=== PATIENT | female | born 1955 | race Caucasian/White ===

== ENCOUNTER → 2018-12-22 12:46 | Outpatient (CLI) | payer MEDICAID, SELFPAY ==
[2018-12-22 13:11] VITALS: BP 109/54; PULSE 78; RESP 16; TEMP 36.3; O2SAT 98; BMI 21.9
[2018-12-22] MEDS: Acetaminophen 325 MG Tablet 650 MG PO (13:49)
[2018-12-22 14:04] VITALS: BP 98/48; PULSE 71; RESP 16; TEMP 36.3
[2018-12-22 15:05] VITALS: BP 113/56; PULSE 76; RESP 16; TEMP 36.2
[2018-12-22 15:59] VITALS: BP 125/62; PULSE 74; RESP 16; TEMP 36.4
== END ==
PROVIDERS: Family Provider Internal Medicine; PCP Internal Medicine; Referring Provider Internal Medicine Hematology & Oncology; Visit Provider Internal Medicine Hematology & Oncology
DX: Z51.89 Encounter for other specified aftercare (principal); D64.81 Anemia due to antineoplastic chemotherapy; C50.919 Malignant neoplasm of unspecified site of unspecified female breast; T45.1X5A Adverse effect of antineoplastic and immunosuppressive drugs, initial encounter; Y92.9 Unspecified place or not applicable
CPT/HCPCS: 36430; 86850; 86900; 86920; 86922; J7040; P9040; A4216

== ENCOUNTER → 2019-01-07 08:42 | Outpatient (CLI) | payer MEDICAID, SELFPAY ==
[2018-12-22 13:11] VITALS: BMI 21.9
[2019-01-07] VITALS (7 sets, daily range): BP systolic 130–161; BP diastolic 55–72; PULSE 78–86; RESP 16; TEMP 36.9–37.2; O2SAT 96–100; BMI 23.3
== END ==
PROVIDERS: Family Provider Internal Medicine; PCP Internal Medicine; Referring Provider Internal Medicine Hematology & Oncology; Visit Provider Internal Medicine Hematology & Oncology
DX: Z51.89 Encounter for other specified aftercare (principal); D64.81 Anemia due to antineoplastic chemotherapy
CPT/HCPCS: 36430; 86850; 86900; 86920; 86922; J7040; P9016; A4216

== ENCOUNTER 2024-07-24 11:30 | Emergency (ER) | payer MEDICARE, SELFPAY ==
[2024-07-24] VITALS (8 sets, daily range): BP systolic 133–160; BP diastolic 58–81; PULSE 78–104; RESP 15–22; TEMP 36.6–36.8; O2SAT 96–98; BMI 21.9
--- NOTE | 2024-07-24 12:54 | EKG12_ITS ---
Test Reason : Blood Pressure : */* mmHG Vent. Rate : 89 BPM Atrial Rate : * BPM P-R Int : * ms QRS Dur : 72 ms QT Int : 386 ms P-R-T Axes : * 13 31 degrees QTcB Int : 469 ms Normal sinus rhythm Junctional ST depression, probably normal Abnormal ECG Confirmed by ZANE ARMENDARIZ, MYRNA ([id number]), editor house organ MICHI NELSON ([id number]) on 07/27/2024 7:04:26 AM Referred By: Confirmed By: MYRNA DEGROOT MD
--- NOTE | 2024-07-24 13:02 | EDS_ITS ---
HPI <EVELYNE Ferrer - Last Filed: 07/24/24 18:40> History of Present Illness Chief Complaint: Weakness Narrative Narrative: Patient is a 68-year-old female with history of anxiety, depression, hypertension, diabetes who presents to the emergency department for failure to thrive. Patient states over the last 6 months she is noticed a complete decline in her activity. Over the last month, she has not been able to get out of bed, she only walks from the bedroom to the kitchen and to the bathroom. Patient states that her children are concerned. Patient denies any specific suicidal homicidal ideation. Patient complains of generalized muscle aches. She has stopped taking her anxiety, depression medications 1 month ago. She states this was because she was having bodyaches. PFS <EVELYNE Ferrer - Last Filed: 07/24/24 18:40> [facility] Medical History (Updated 07/24/24 @ 18:55 by Jay Chow MD) Depression Anxiety Alcohol abuse, daily use History of breast cancer Hypertension Home Medications ?Medication ?Instructions ?Recorded ?Last Taken ?Type bupropion HCl 100 mg tablet 100 mg PO BID 07/03/13 Unk nown History carvedilol 25 mg tablet 25 mg PO BID 07/03/13 Unknow n History carvedilol 25 mg tablet 25 mg PO BID ##60 07/03/13 U nknown Rx hydrochlorothiazide 25 mg tablet 25 mg PO DAILY Unknown History lisinopril 20 mg tablet 20 mg PO DAILY 07/03/13 Unkn own History lisinopril 40 mg tablet 40 mg PO DAILY 07/03/13 Unkn own History lisinopril 40 mg tablet 40 mg PO DAILY ##30 07/03/13 Unknown Rx amlodipine 10 mg tablet 10 mg PO DAILY 07/24/24 Unkn own History metformin 500 mg tablet 500 mg PO BID 07/24/24 Unkno wn History Allergy/AdvReac Type Severity Reaction Status Date / Time No Known Allergies Allergy Verified 07/24/24 11:30 Social History Smoking Status: Current every day smoker tobacco type: cigarettes ROS <EVELYNE Ferrer - Last Filed: 07/24/24 18:40> ROS ED ROS Narrative Constitutional: Negative for fever, chills. Positive weight loss, weakness Eyes: Negative for vision loss, vision change, double vision ENT: Negative for any sore throat, ear pain, congestion Cardiovascular: Negative for any chest pain, tightness, palpitations Respiratory: Negative for any cough, sputum production, hemoptysis, dyspnea, dyspnea on exertion, orthopnea Gastrointestinal: Negative for any abdominal pain, nausea, vomiting, diarrhea, constipation, blood in stool, blood in vomit : Negative for any urinary frequency, dysuria, retention, blood in urine Muscle skeletal: Negative for any neck pain, back pain. Positive for generalized myalgias Neurological: Negative for any headache, syncope, dizziness Skin: Negative for any rashes, itching, abrasions, lacerations Psychiatric: Negative for any suicidal ideation, homicidal ideation. Positive for anxiety, stress, Hematologic: Negative for any excessive bruising, easy bleeding EXAM <EVELYNE Ferrer - Last Filed: 07/24/24 18:40> Physical Exam Narrative Exam Narrative: Vital signs reviewed. Patient is alert and orient x 4, patient does appear to be depressed, patient's moving all extremities. HEET: Head normocephalic atraumatic, TMs clear bilaterally. Posterior pharynx is clear, moist mucous membranes. Nares clear bilaterally. Neck: Supple with no lymphadenopathy or tenderness. No signs of meningismus. Cardiac: Regular rate and rhythm no murmurs gallops or rubs, equal peripheral pulses bilaterally. Respiratory: Expiratory wheezes throughout. No chest tenderness. Abdomen: Soft, nontender, nondistended. No abdominal bruit or pulsatile masses. No hepatosplenomegaly Extremities: No peripheral edema, no signs of gross trauma or deformity. Active full range of motion of all extremities. Equal strength bilateral lower extremities. Neuro: Cranial nerves II through XII intact, no focal neurological deficits. NIH stroke scale 0 Skin: Clean dry and intact with no rash, purpura, petechiae, vesicles or pustules. Backs/flank: No CVA tenderness, no midline spinal tenderness, no deformity. Psych: Normal mood and affect. Patient appears to be anxious, no suicidal homicidal ideation. Const Vital Signs: 07/24/24 11:31 07/24/24 12:22 07/24/24 12:29 Temperature 98.2 F Temperature Source Oral Pulse Rate 91 92 Respiratory Rate 18 20 H Respiratory Effort Short of Breath Respiratory Pattern Normal Blood Pressure 144/81 H 160/81 H Blood Pressure Mean 102 107 Blood Pressure Source Monitor Blood Pressure Position Semi-Fowlers Blood Pressure Location Right Arm Pulse Ox 98 97 Oxygen Delivery Method Room Air Room Air 07/24/24 13:01 07/24/24 13:16 07/24/24 13:30 Temperature Temperature Source Pulse Rate 92 78 Respiratory Rate 22 H 15 Respiratory Effort Respiratory Pattern Tachypnea Blood Pressure 136/74 H Blood Pressure Mean 94 Blood Pressure Source Blood Pressure Position Blood Pressure Location Pulse Ox 96 Oxygen Delivery Method Room Air Room Air 07/24/24 15:00 07/24/24 17:00 07/24/24 18:56 Temperature Temperature Source Pulse Rate 98 104 H 95 Respiratory Rate 15 15 18 Respiratory Effort Respiratory Pattern Blood Pressure 148/70 H 137/58 H 133/69 H Blood Pressure Mean 96 84 90 Blood Pressure Source Blood Pressure Position Blood Pressure Location Pulse Ox 97 97 98 Oxygen Delivery Method Room Air Room Air Room Air Positive cachectic and unkempt General Appearance ED: unkempt and cachectic Nutritional Appearance: cachectic Psych Appearance: unkempt <Jay Chow MD - Last Filed: 07/24/24 19:00> Physical Exam Const Vital Signs: 07/24/24 11:31 07/24/24 12:22 07/24/24 12:29 Temperature 98.2 F Temperature Source Oral Pulse Rate 91 92 Respiratory Rate 18 20 H Respiratory Effort Short of Breath Respiratory Pattern Normal Blood Pressure 144/81 H 160/81 H Blood Pressure Mean 102 107 Blood Pressure Source Monitor Blood Pressure Position Semi-Fowlers Blood Pressure Location Right Arm Pulse Ox 98 97 Oxygen Delivery Method Room Air Room Air 07/24/24 13:01 07/24/24 13:16 07/24/24 13:30 Temperature Temperature Source Pulse Rate 92 78 Respiratory Rate 22 H 15 Respiratory Effort Respiratory Pattern Tachypnea Blood Pressure 136/74 H Blood Pressure Mean 94 Blood Pressure Source Blood Pressure Position Blood Pressure Location Pulse Ox 96 Oxygen Delivery Method Room Air Room Air 07/24/24 15:00 07/24/24 17:00 07/24/24 18:56 Temperature Temperature Source Pulse Rate 98 104 H 95 Respiratory Rate 15 15 18 Respiratory Effort Respiratory Pattern Blood Pressure 148/70 H 137/58 H 133/69 H Blood Pressure Mean 96 84 90 Blood Pressure Source Blood Pressure Position Blood Pressure Location Pulse Ox 97 97 98 Oxygen Delivery Method Room Air Room Air Room Air MDM <Marlo Castillo NP-C - Last Filed: 07/24/24 18:40> [facility] Lab Data Labs: Laboratory Results - last 24 hr 07/24/24 07/24/24 07/24/24 13:12 14:01 17:47 WBC 5.0 RBC 4.51 Hgb 14.0 Hct 37.7 MCV 83.6 MCH 31.0 MCHC 37.1 H RDW Std Deviation 37.6 RDW Coeff of David 12.4 Plt Count 397 MPV 8.2 Immature Gran % (Auto) 0.200 Neut % (Auto) 68.1 Lymph % (Auto) 19.3 [place] % (Auto) 9.0 Eos % (Auto) 2.4 Baso % (Auto) 1.0 Absolute Neuts (auto) 3.4 Absolute Lymphs (auto) 0.96 Nucleated RBC % 0 Sodium 127 L 132 L Potassium 3.3 L 2.9 L Chloride 88 L 97 L Carbon Dioxide 26.0 26.0 Anion Gap 14 9 BUN 9 9 Creatinine 0.92 0.74 Estim Creat Clear Calc 54.13 62.24 Est GFR (MDRD) Af Amer 78 102 Est GFR (MDRD) Non-Af 65 84 BUN/Creatinine Ratio 9.8 L 12.2 Glucose 140 H 128 H Calcium 9.0 8.3 L Urine Color Yellow Urine Clarity Clear Urine pH 6.0 Ur Specific [place] 1.010 Urine Protein 15 H Urine Glucose (UA) Normal Urine Ketones Negative Urine Occult Blood 10 H Urine Nitrite Negative Urine Bilirubin Negative Urine Urobilinogen Normal Ur Leukocyte Esterase Negative Urine RBC 0 SEEN Urine WBC 0-5 SEEN Ur Squamous Epith Cells 0-5 SEEN Urine Bacteria 0 SEEN Urine Mucus 0 SEEN Urine Opiates Screen NEGATIVE Urine Methadone Screen NEGATIVE Ur Barbiturates Screen NEGATIVE Ur Phencyclidine Scrn NEGATIVE Ur Amphetamines Screen NEGATIVE MDMA (Ecstasy) Screen NEGATIVE U Benzodiazepines Scrn NEGATIVE Urine Cocaine Screen POSITIVE H U Cannabinoids Screen NEGATIVE Ur Drug Screen Comment Ethyl Alcohol 6.0 Radiography Diagnostic Testing: Clinical Impression(s) from Imaging Studies Chest X-Ray 07/24/24 13:35 IMPRESSION: Left subclavian central venous catheter with port seen, with tip projecting over the SVC. Prior coronary artery stenting is seen. The cardiomediastinal silhouette is remarkable for a partially calcified aorta. No evidence of cardiomegaly. Lungs are moderately hyperinflated. No focal infiltrate is seen. No pleural effusion or pneumothorax is seen. Moderate degenerative changes of the midthoracic spine are noted. No acute osseous process is seen. Reading Location: [id number] EKG Sinus rhythm 89 bpm: Attestation: I personally reviewed and interpreted this EKG as follows: Comments: Sinus rhythm 79 bpm, no acute ST elevation, no acute infarct noted. Treatment and Re-Evaluation :: Differential diagnosis includes however is not limited to: Electrolyte abnormality community-acquired pneumonia, COPD exacerbation, dehydration, increased depression, failure to thrive, anxiety Patient appears generally well, vital signs are stable, patient is nontoxic- appearing. Presenting to the emergency department for complaints of muscle aches, as well as weakness, failure to thrive. Speaking with the patient at length, I do believe this is more of a mental health issue. Patient will receive some basic laboratory values to ensure there is no community-acquired pneumonia, metabolic reason why she is feeling this way. I did speak with the patient about possibly being placed to a psychiatric facility to get her medications straightened as well as to ensure that she can take care of herself. I did speak with social work who will talk with the patient. Patient was given chest x-ray as well as the other laboratory values. All radiologic examinations were read, reviewed by the emergency department attending. From these reads, a plan of care will be put in place. Patient's CBC is unremarkable, chemistries do show slight hyponatremia 127, potassium 3.3, patient was given 1 L normal saline. Chloride is 88. Patient's creatinine was unremarkable. Patient's urinalysis was negative for any infection. Alcohol level was negative. Patient's drug screen was only positive for cocaine. Patient does admit to snorting cocaine every now and then. Patient is chest x-ray shows no pleural effusion or pneumothorax is seen. No focal infiltrate is seen. After this, I did have the patient talk to social work. At this time, I spoke with the patient as well as a social media project manager, we do believe the patient needs to be admitted to a psychiatric facility. I believe that if she goes home, she will continue not eat and drink and take care of herself and then find herself in worsening shape. Patient is agreeable with staying. [place] slip was filled out and signed by Dr. Sen. Patient is considered for admission by [facility]. They were concerned about her hyponatremia,Repeat sodium was 132, this is improved from 127. However patient's potassium was 2.9, this was replaced orally. At this time, patient is stable for admission and transfer. <Jay Chow MD - Last Filed: 07/24/24 19:00> [facility] MDM Narrative Medical decision making narrative: Dr. Chow: I have personally performed a face to face assessment of the patient and have reviewed the RHIANNON Note. I performed a substantive portion of the visit including all aspects of the following. My bustos findings include: History is generalized weakness, history of depression, not on medication currently. States has not gotten out of bed in 2 months, unable to motivate self to perform activities of daily living. Exam is afebrile. Vital signs noted. Regular rate and rhythm. Lungs clear to auscultation bilaterally. Abdomen soft nontender with positive bowel sounds. No guarding or rebound. Neurological examination nonfocal and nonlateralizing. Flat, depressed affect. Medical Decision Making: Check labs. Mild hyponatremia. IV fluids. Check labs. Potassium. Case management evaluation. Given her failure to thrive and increased depression not being on medications, was felt that she requires psychiatric hospitalization for her depression. She is unable to provide for her basic needs as she states that she has been in bed for 2 months. Disposition is transferred to [facility] for psychiatry in stable condition. Other additions or changes: [None] History & Record Review Discussion w/independent historian: Patient Lab Data Attestation: I reviewed the patient's lab results. Labs: Laboratory Results - last 24 hr 07/24/24 07/24/24 07/24/24 13:12 14:01 17:47 WBC 5.0 RBC 4.51 Hgb 14.0 Hct 37.7 MCV 83.6 MCH 31.0 MCHC 37.1 H RDW Std Deviation 37.6 RDW Coeff of David 12.4 Plt Count 397 MPV 8.2 Immature Gran % (Auto) 0.200 Neut % (Auto) 68.1 Lymph % (Auto) 19.3 [place] % (Auto) 9.0 Eos % (Auto) 2.4 Baso % (Auto) 1.0 Absolute Neuts (auto) 3.4 Absolute Lymphs (auto) 0.96 Nucleated RBC % 0 Sodium 127 L 132 L Potassium 3.3 L 2.9 L Chloride 88 L 97 L Carbon Dioxide 26.0 26.0 Anion Gap 14 9 BUN 9 9 Creatinine 0.92 0.74 Estim Creat Clear Calc 54.13 62.24 Est GFR (MDRD) Af Amer 78 102 Est GFR (MDRD) Non-Af 65 84 BUN/Creatinine Ratio 9.8 L 12.2 Glucose 140 H 128 H Calcium 9.0 8.3 L Urine Color Yellow Urine Clarity Clear Urine pH 6.0 Ur Specific [place] 1.010 Urine Protein 15 H Urine Glucose (UA) Normal Urine Ketones Negative Urine Occult Blood 10 H Urine Nitrite Negative Urine Bilirubin Negative Urine Urobilinogen Normal Ur Leukocyte Esterase Negative Urine RBC 0 SEEN Urine WBC 0-5 SEEN Ur Squamous Epith Cells 0-5 SEEN Urine Bacteria 0 SEEN Urine Mucus 0 SEEN Urine Opiates Screen NEGATIVE Urine Methadone Screen NEGATIVE Ur Barbiturates Screen NEGATIVE Ur Phencyclidine Scrn NEGATIVE Ur Amphetamines Screen NEGATIVE MDMA (Ecstasy) Screen NEGATIVE U Benzodiazepines Scrn NEGATIVE Urine Cocaine Screen POSITIVE H U Cannabinoids Screen NEGATIVE Ur Drug Screen Comment Ethyl Alcohol 6.0 Radiography Diagnostic Testing: Clinical Impression(s) from Imaging Studies Chest X-Ray 07/24/24 13:35 IMPRESSION: Left subclavian central venous catheter with port seen, with tip projecting over the SVC. Prior coronary artery stenting is seen. The cardiomediastinal silhouette is remarkable for a partially calcified aorta. No evidence of cardiomegaly. Lungs are moderately hyperinflated. No focal infiltrate is seen. No pleural effusion or pneumothorax is seen. Moderate degenerative changes of the midthoracic spine are noted. No acute osseous process is seen. Reading Location: [address] Management Discussion w/another healthcare provider: restaurant worker/Case management Discharge Plan Triage Chief Complaint: Weakness ED Midlevel Provider: Marlo Castillo ED Provider: Jay Chow Dx/Rx/DC Orders Clinical Impression: Adult failure to thrive, Major depression, Hyponatremia Prescriptions: No Action carvedilol 25 MG tablet 25 mg PO BID lisinopril 20 MG tablet 20 mg PO DAILY bupropion HCl 100 MG tablet 100 mg PO BID hydrochlorothiazide 25 MG tablet 25 mg PO DAILY lisinopril 40 MG tablet 40 mg PO DAILY lisinopril 40 MG tablet 40 mg PO DAILY Qty: 30 1RF carvedilol 25 MG tablet 25 mg PO BID Qty: 60 1RF Primary Care Provider: Angelita Mccracken Referrals: Angelita Mccracken MD [Primary Care Provider] - Print Language: [place] Disposition Disposition: Psychiatric Hospital or Unit Discharge Location: [facility]
[2024-07-24] MEDS: Albuterol 2.5 MG/3 ML VIAL.NEB. INHALATION (13:11)
[2024-07-24] MEDS: Ipratropium/Albuterol Sulfate 3 ML AMPUL.NEB INHALATION (13:11)
[2024-07-24] MEDS: LORazepam 2 MG/ML Syringe 1 MG IV ×2 (13:19→17:45)
[2024-07-24 13:22] LABS: Absolute Lymphocyte Count 0.96 X10^3/uL (0.83-4.51); Absolute Neutrophil Count 3.4 X10^3/uL (2.0-7.7); Basophil# 0.05 X10^3/uL; Eosinophil# 0.12 X10^3/uL; Eosinophils% 2.4 % (0-5); Hematocrit 37.7 % (37-47); Lymphocyte # 0.96 X10^3/ul (0.83-4.51); Lymphocyte % 19.3 % (19-41); Mean Corp Hgb Conc 37.1 g/dL (32-36); Mean Corpuscular Volume 83.6 fL (81-99); Mean Platelet Vol. 8.2 fl (6.2-12.0); Monocyte# 0.45 X10^3/uL; NRBC Flagged by Analyzer 0 % (0-5); Neutrophil # 3.39 X10^3/uL (2.7-7.7); Neutrophil % 68.1 % (47-70); Platelet Count 397 K/mm3 (150-450); RBC Distribution Width CV 12.4 % (11.6-14.6); RBC Distribution Width SD 37.6 fl (35.1-43.9); Red Blood Count 4.51 M/mm3 (4.2-5.4)
--- NOTE | 2024-07-24 13:35 | RAD_ITS ---
PROCEDURE: CHEST PA AND LATERAL REASON FOR EXAM: Cough. Weakness for 6 months, by report. TECHNIQUE: Frontal and lateral views of the chest. COMPARISON: None. RAD/Chest PA and Lateral IMPRESSION: Left subclavian central venous catheter with port seen, with tip projecting ove r the SVC. Prior coronary artery stenting is seen. The cardiomediastinal silhouette is remarkable for a partially calcified aorta. No evidence of cardiomegaly. Lungs are moderately hyperinflated. No focal infiltrate is seen. No pleural effusion or pneumothorax is seen. Moderate degenerative changes of the midthoracic spine are noted. No acute oss eous process is seen. Reading Location: [id number]
[2024-07-24 14:10] LABS: Anion Gap 14 (5-15); BUN 9 mg/dL (7-18); BUN/Creat Ratio 9.8 RATIO (10-20); Chloride 88 mmol/L (98-107); Creatinine, Serum 0.92 mg/dL (0.55-1.02); EST Glomerular Filtration Rate 65 mL/min (>60); Est Glom Filt Rate - Afr Amer 78 mL/min (>60); Estimated Creatinine Clearance 54.13 ml/min; Glucose 140 mg/dL (74-106); Potassium 3.3 mmol/L (3.5-5.1); Sodium Level 127 mmol/L (136-145)
[2024-07-24 14:12] LABS: Bacteria 0 SEEN /hpf (None Seen); Mucous, Urine 0 SEEN /hpf (<or=2+); Red Blood Cells-Urine 0 SEEN /hpf (0-5)
[2024-07-24 14:14] LABS: Color, Urine Yellow (Yellow); Glucose, Dipstick Normal (Normal); Ketone-Dipstick Negative (Negative); Leukocyte Esterase-Dipstick Negative /ul (Negative); Nitrite-Dipstick Negative (Negative); Occult Blood-Urine 10 /ul (Negative); Protein-Dipstick 15 mg/dl (Negative); Urine Bilirubin Dipstick Negative (Negative); Urine Clarity Clear (Clear); Urine Urobilinogen Normal (Normal)
[2024-07-24 14:22] LABS: Squamous Epithelial Cells - UA 0-5 SEEN /hpf (5-10); White Blood Cells 0-5 SEEN /hpf (0-5)
[2024-07-24 14:45] LABS: Amphetamine Urine NEGATIVE (<1000 ng/mL); Barbiturate Urine VISTA NEGATIVE (< 200 ng/mL); Benzodiazepine Urine VISTA NEGATIVE (< 200 ng/mL); Cocaine Urine VISTA POSITIVE (< 300 ng/mL); Ecstacy Urine VISTA NEGATIVE (< 500 ng/mL); Methadone Urine VISTA NEGATIVE (< 300 ng/mL); PCP Urine VISTA NEGATIVE (< 25 ng/mL); THC Urine VISTA NEGATIVE (< 50 ng/mL); Vista UDS pH Range 5
[2024-07-24] MEDS: 0.9% Normal Saline (1000mL) 1,000 ML 999 ML IV (14:49)
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
--- NOTE | 2024-07-24 16:21 | CM.ED ---
Social work 1610: Called [facility] (ph: [phone]) and talked with Bryanna. Beds are available, so faxed referral (f: [phone]). Dr and nursing updated. 1710: [facility] returned call stating inability to accept patient based on positive toxicology screen. 1715: called [facility] and left a secure voicemail requesting return call (ph: ). Called [facility] and spoke with Yazan (ph: ). Beds available, so referral faxed (f: ). Dr and nursing updated. Patient updated. 1735: [facility] called and spoke with Sravanthi. Sravanthi stated everything was looking good to be able to accept patient, but patient would need to have a secondary draw after receiving fluids to ensure patient's sodium level was increasing. Brinda HUI updated. This SW to resend sodium level to [facility] when available for official accepting information. Adri Mcwilliams, DIRECTOR VALIDATION, DO ALL OPERATOR
[2024-07-24 18:29] LABS: Anion Gap 9 (5-15); BUN 9 mg/dL (7-18); BUN/Creat Ratio 12.2 RATIO (10-20); Calcium,Total 8.3 mg/dL (8.5-10.1); Chloride 97 mmol/L (98-107); Creatinine, Serum 0.74 mg/dL (0.55-1.02); EST Glomerular Filtration Rate 84 mL/min (>60); Est Glom Filt Rate - Afr Amer 102 mL/min (>60); Estimated Creatinine Clearance 62.24 ml/min; Glucose 128 mg/dL (74-106); Potassium 2.9 mmol/L (3.5-5.1); Sodium Level 132 mmol/L (136-145)
--- NOTE | 2024-07-24 18:37 | CM.ED ---
Social work 183: Faxed requested second draw with new sodium level to [facility] (f: ). 184: Sravanthi from [facility] called with official acceptance of patient. Sravanthi did request that due to patient's potassium level being low, patient requested to receive potassium fluid prior to transport. Official accepting information as follows: Accepting physician: Dr. Sepulveda N2N: [phone] Accepted to the dual diagnosis unit. Nursing, doctor, and patient updated. Patient had no questions at this time. Plan: accepted to [facility] pending transport. Adri Mcwilliams, DINING CAR WAITER/WAITRESS, REFRIGERATOR MOVER
[2024-07-24] MEDS: Potassium Chloride Oral Tablet 20 MEQ 40 MEQ PO (18:55)
[2024-07-24] MEDS: metFORMIN HCl 500 MG Tablet PO (23:08)
--- NOTE | 2024-07-24 23:16 | ED.RN ---
ATTEMPTED TO CALL REPORT TO [facility] X3, UNABLE TO REACH RN
== END 2024-07-24 23:17 ==
PROVIDERS: Nurse Practitioner; Emergency Provider Emergency Medicine; PCP Internal Medicine; Visit Provider Emergency Medicine
DX: F32.9 Major depressive disorder, single episode, unspecified (principal); I10 Essential (primary) hypertension; R62.7 Adult failure to thrive; E87.1 Hypo-osmolality and hyponatremia; F14.90 Cocaine use, unspecified, uncomplicated; F17.210 Nicotine dependence, cigarettes, uncomplicated; Z68.21 Body mass index [BMI] 21.0-21.9, adult; Z79.899 Other long term (current) drug therapy
CPT/HCPCS: 71046; 80048; 80307; 81001; 82077; 85025; 93005; 94640; 96361; 96374; 99284

== ENCOUNTER 2024-09-23 13:47 | Observation (INO) | payer MEDICARE, SELFPAY ==
--- NOTE | 2024-09-21 08:28 | EKG12_ITS ---
Test Reason : PRE OP Blood Pressure : */* mmHG Vent. Rate : 75 BPM Atrial Rate : 75 BPM P-R Int : 134 ms QRS Dur : 76 ms QT Int : 426 ms P-R-T Axes : 48 39 46 degrees QTcB Int : 475 ms Normal sinus rhythm Normal ECG Confirmed by ZANE ARMENDARIZ, MYRNA ([id number]), copy editor MICHI NELSON ([id number]) on 09/21/2024 11:42:31 AM Referred By: Sd Nieves Confirmed By: MYRNA DEGROOT MD
[2024-09-21 09:18] LABS: Absolute Lymphocyte Count 1.15 X10^3/uL (0.83-4.51); Absolute Neutrophil Count 5.4 X10^3/uL (2.0-7.7); Basophil# 0.08 X10^3/uL; Basophil% 1.1 % (0-1); Eosinophil# 0.35 X10^3/uL; Eosinophils% 4.7 % (0-5); Hematocrit 37.7 % (37-47); Hemoglobin 12.9 g/dL (12.0-15.0); Lymphocyte # 1.15 X10^3/ul (0.83-4.51); Lymphocyte % 15.4 % (19-41); Mean Corp Hgb Conc 34.2 g/dL (32-36); Mean Corpuscular Hgb 28.6 pg (27.0-32.0); Mean Corpuscular Volume 83.6 fL (81-99); Mean Platelet Vol. 8.8 fl (6.2-12.0); Monocyte% 6.7 % (0-10); NRBC Flagged by Analyzer 0 % (0-5); Neutrophil # 5.35 X10^3/uL (2.7-7.7); Neutrophil % 71.8 % (47-70); Platelet Count 367 K/mm3 (150-450); RBC Distribution Width CV 12.8 % (11.6-14.6); RBC Distribution Width SD 38.8 fl (35.1-43.9); Red Blood Count 4.51 M/mm3 (4.2-5.4); White Blood Count 7.5 K/mm3 (4.4-11.0)
[2024-09-21 09:48] LABS: Magnesium 1.4 mg/dL (1.5-2.2)
[2024-09-21 09:54] LABS: Hepatitis B Surface Antibody Nonreactive; Hepatitis C Antibody Nonreactive (Nonreactive)
[2024-09-21 10:06] LABS: Hemoglobin A1c 6.5 % (<=5.6)
[2024-09-21 10:08] LABS: Anion Gap 17 (5-15); BUN 12 mg/dL (4-19); BUN/Creat Ratio 13.1 RATIO (10-20); Calcium,Total 9.3 mg/dL (7.6-11.0); Carbon Dioxide 20.9 mmol/L (21.0-32.0); Chloride 97 mmol/L (98-108); Creatinine, Serum 0.95 mg/dL (0.70-1.20); EST Glomerular Filtration Rate 66 (>60); Glucose 162 mg/dL (70-99); HIV Nonreactive (Nonreactive); Potassium 3.2 mmol/L (3.3-5.1); Sodium Level 134 mmol/L (133-145)
--- NOTE | 2024-09-21 11:24 | PAT.ANE_ITS ---
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 When Was Last Pacemaker Check QUESTION #4 FULL TEXT: You/Your Family Experience fever (hyperthermia) with Anesthesia Last Oral Intake Last Oral intake: Last Oral Intake NPO since Meds taken in AM with sips of water? 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 - tax accounting assistant: PONV - tax accounting assistant Female Yes 09/17/24 14:13 HX of Motion Sickness No 09/17/24 14:13 HX of N/V After Surgery No 09/17/24 14:13 Non-Smoker No 09/17/24 14:13 Duration of Surgery greater Yes 09/17/24 14:13 than 60 minutes Number of Risk Factors 2 09/17/24 14:13 PONV Score Moderate Risk 09/17/24 14:13 Height & Weight Height & Weight: Anesthesia: Height & Weight Height 5 ft 5 in 09/10/24 14:34 Respiratory Assessment Respiratory Assessment - tax accounting assistant: Respiratory Tract Infection Hx - tax accounting assistant Hx Respiratory Tract Infection No 09/17/24 14:13 STOP Sleep Apnea STOP Sleep Apnea - tax accounting assistant: STOP Sleep Apnea - tax accounting assistant Hx Hypertension Yes: CONTROLLED WITH MEDS 09/17/24 14:13 Hx Sleep Apnea No 09/17/24 14:13 CPAP BIPAP Do you snore loudly (louder No 09/17/24 14:13 than talking or can be heard Do you often feel tired/ No 09/17/24 14:13 fatigued/ sleepy during daytime? Has anyone observed you stop No 09/17/24 14:13 breathing during sleep? STOP Results Negative 09/17/24 14:13 QUESTION #5 FULL TEXT : Do you snore loudly (louder than talking or can be heard through closed doors)? 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 Specify any problems Hx of Preganancy in last 3 No 09/17/24 14:13 Months Nurse Filling Out Transfusion DSCHRIBER 09/17/24 14:13 & Questions: Date: 09/17/24 09/17/24 14:13 Time: 14:14 09/17/24 14:13 Patient unable to answer at this time (ie. confused, unrespo /Reproduction History /Reproductive History - tax accounting assistant: /Reproductive Hx- tax accounting assistant Hx Now No 09/17/24 14:13 Gestational Age (in weeks): EDC: Hx Hx Para Hx Section SAB No 09/17/24 14:13 PFSH Medical History Wears glasses Wears dentures Post-menopausal Cancer Marijuana use Alcohol use History of steroid therapy Diabetes High cholesterol DDD (degenerative disc disease), cervical Smoker Leg cramps History of echocardiogram History of stress test Depression Anxiety History of breast cancer Hypertension Home Medications ?Medication ?Instructions ?Recorded ?Last Taken ?Type carvedilol 25 mg tablet 25 mg PO BID 07/03/13 Unknow n History hydrochlorothiazide 25 mg tablet 25 mg PO DAILY Unknown History lisinopril 40 mg tablet 40 mg PO DAILY 07/03/13 Unkn own History amlodipine 10 mg tablet 10 mg PO DAILY 07/24/24 Unkn own History metformin 500 mg tablet 500 mg PO BID 07/24/24 Unkno wn History aripiprazole 5 mg tablet 5 mg PO QHS 09/10/24 Unknown History aspirin 325 mg tablet 325 mg PO QDAY 09/10/2408/22 History escitalopram oxalate 10 mg tablet 10 mg PO QHS 5 Unknown History hydroxyzine HCl 50 mg tablet 50 mg PO 4X/DAY PRN anxie ty 09/10/24 Unknown History rosuvastatin 10 mg tablet 10 mg PO QHS 09/10/24 Unknow n History Allergy/AdvReac Type Severity Reaction Status Date / Time No Known Allergies Allergy Verified 09/18/24 13:31 Surgical History History of coronary artery stent placement History of cardiac catheterization Hx of colonoscopy History of vascular access device Hx of total mastectomy of right breast Social History Smoking Status: Current every day smoker tobacco type: cigarettes alcohol intake: current alcohol intake frequency: holidays/special occasions only Audit: Pertinent Findings Pertinent Findings EKG Perinent findings: 07/24/2024. Normal sinus rhythm [address] depression, probably normal. Additional pertinent findings: Potassium 3.2 mmol/L. On 09/21/2024 lab. Should be adequate to proceed with surgery. Recommendation Anesthesia Recommendation Anesthesia recommendation: OPTIMIZED for anesthesia
[2024-09-22 05:07] LABS: Hepatitis A AB, Total Negative (Negative)
[2024-09-23] VITALS (17 sets, daily range): BP systolic 109–157; BP diastolic 58–77; PULSE 76–85; RESP 13–16; TEMP 36–36.6; O2SAT 93–100; BMI 22.4
--- NOTE | 2024-09-23 09:21 | PCM.PRE.AN2 ---
ASA Classification* ASA Classification ASA Classification: 2 Assessment & Plan Anesthesia* Anesthesia Assessment Anesthesia Assessment: Discussed sedation and/or anesthesia options, risks, benefits, and alternatives with patient/parents/legal guardian/POA. Questions invited. The patient/parents/legal guardian/POA seems to understand and agrees to proceed with anesthesia plan. Reviewed the physical assessment, medical history, allergy history and patient home medications list prior to surgery/procedure/anesthetic and documented any changes. Performed airway and anesthesia risk assessments. Anesthesia Type Anesthesia Type: General Anesthesia Focused Assessment* Airway Assessment Mouth opens: >3 cm Mallampati Score: II Focused Labs Anesthesia Preop lab: CBC WBC 7.5 K/mm3 (4.4-11.0) 09/21/24 08:50 09/21/24 RBC 4.51 M/mm3 (4.2-5.4) 09/21/24 08:50 09/21/24 Hgb 12.9 g/dL (12.0-15.0) 09/21/24 08:50 09/21/24 Hct 37.7 % (37-47) 09/21/24 08:50 09/21/24 Plt Count 367 K/mm3 (150-450) 09/21/24 08:50 09/21/24 CHEMISTRY Potassium 3.2 mmol/L (3.3-5.1) L 09/21/24 08:50 09/21/24 Sodium 134 mmol/L (133-145) 09/21/24 08:50 09/21/24 Magnesium 1.4 mg/dL (1.5-2.2) L 09/21/24 08:49 09/21/24 BUN 12 mg/dL (4-19) 09/21/24 08:50 09/21/24 Creatinine 0.95 mg/dL (0.70-1.20) 09/21/24 08:50 09/21/24 Glucose 162 mg/dL (70-99) H 09/21/24 08:50 09/21/24 COAG Pre-Assessment Diagnosis/Proposed Procedure Planned Operative Procedure(s): ANTERIOR CERVICAL DISC FUSION C3-4 C4-5 Anesthesia History 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 When Was Last Pacemaker Check QUESTION #4 FULL TEXT: You/Your Family Experience fever (hyperthermia) with Anesthesia Last Oral Intake Last Oral intake: Last Oral Intake NPO since Meds taken in AM with sips of water? 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 programmer Female Yes 09/17/24 14:13 HX of Motion Sickness No 09/17/24 14:13 HX of N/V After Surgery No 09/17/24 14:13 Non-Smoker No 09/17/24 14:13 Duration of Surgery greater Yes 09/17/24 14:13 than 60 minutes Number of Risk Factors 2 09/17/24 14:13 PONV Score Moderate Risk 09/17/24 14:13 Height & Weight Height & Weight: Anesthesia: Height & Weight Height 5 ft 5 in 09/18/24 13:29 Respiratory Assessment Respiratory Assessment - embedded software programmer: Respiratory Tract Infection Hx - embedded software programmer Hx Respiratory Tract Infection No 09/17/24 14:13 STOP Sleep Apnea STOP Sleep Apnea - embedded software programmer: STOP Sleep Apnea - embedded software programmer Hx Hypertension Yes: CONTROLLED WITH MEDS 09/17/24 14:13 Hx Sleep Apnea No 09/17/24 14:13 CPAP BIPAP Do you snore loudly (louder No 09/17/24 14:13 than talking or can be heard Do you often feel tired/ No 09/17/24 14:13 fatigued/ sleepy during daytime? Has anyone observed you stop No 09/17/24 14:13 breathing during sleep? STOP Results Negative 09/17/24 14:13 QUESTION #5 FULL TEXT : Do you snore loudly (louder than talking or can be heard through closed doors)? 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 Specify any problems Hx of Preganancy in last 3 No 09/17/24 14:13 Months Nurse Filling Out Transfusion DSCHRIBER 09/17/24 14:13 & Questions: Date: 09/17/24 09/17/24 14:13 Time: 14:14 09/17/24 14:13 Patient unable to answer at this time (ie. confused, unrespo /Reproduction History /Reproductive History - embedded software programmer: /Reproductive Hx- embedded software programmer Hx Now No 09/17/24 14:13 Gestational Age (in weeks): EDC: Hx Hx Para Hx Section SAB No 09/17/24 14:13 Active Medications Active Medications: Current Medications Generic Name Dose Route Start Last Admin Trade Name Freq PRN Reason Stop Dose Admin Acetaminophen 1,000 mg 09/23/24 11:00 Acetaminophen 500 Mg Tablet PO 09/23/24 11:01 X1 ONE Dexamethasone Sodium Phosphate 8 mg 09/23/24 11:00 Dexamethasone 10 Mg/Ml Vial IV 09/23/24 11:01 X1 ONE Dexamethasone Sodium Phosphate 4 mg 09/23/24 11:00 Dexamethasone 4 Mg/Ml Vial IV 09/23/24 11:01 X1 ONE Cefazolin Sodium 2 gm/ N/A 20 mls @ 400 mls/hr 09/23/24 11:00 IV 09/23/24 11:02 PREOP ONE Tranexamic Acid 1,000 mg/ 110 mls @ 440 mls/hr 09/23/24 11:00 Sodium Chloride IV 09/23/24 11:14 X1 ONE Tranexamic Acid 1,000 mg/ 110 mls @ 440 mls/hr 09/23/24 11:00 Sodium Chloride IV 09/23/24 11:14 X1 ONE Magnesium Sulfate 2 gm/ 104 mls @ 208 mls/hr 09/23/24 11:00 Dextrose IV 09/23/24 11:29 X1 ONE Insulin Human Lispro 1 - 6 unit 09/23/24 11:00 Insulin Lispro 100 Unit/Ml Insuln.Pen SC 09/23/24 18:00 Q4H PRN PRN BG>/= 180, SEE PROTOCOL Protocol PFSH Medical History MRSA (methicillin resistant staph aureus) culture positive Wears glasses Wears dentures Post-menopausal Cancer Marijuana use Alcohol use History of steroid therapy Diabetes High cholesterol DDD (degenerative disc disease), cervical Smoker Leg cramps History of echocardiogram History of stress test Depression Anxiety History of breast cancer Hypertension Home Medications ?Medication ?Instructions ?Recorded ?Last Taken ?Type carvedilol 25 mg tablet 25 mg PO BID 07/03/13 Unknown History hydrochlorothiazide 25 mg tablet 25 mg PO DAILY 07/03/13 Unknown History lisinopril 40 mg tablet 40 mg PO DAILY 07/03/13 Unknown History amlodipine 10 mg tablet 10 mg PO DAILY 07/24/24 Unknown History metformin 500 mg tablet 500 mg PO BID 07/24/24 Unknown History aripiprazole 5 mg tablet 5 mg PO QHS 09/10/24 Unknown History aspirin 325 mg tablet 325 mg PO QDAY 09/10/24 09/08/24 History escitalopram oxalate 10 mg tablet 10 mg PO QHS 09/10/24 Unknown History hydroxyzine HCl 50 mg tablet 50 mg PO 4X/DAY PRN anxiety 09/10/24 Unknown History rosuvastatin 10 mg tablet 10 mg PO QHS 09/10/24 Unknown History Allergy/AdvReac Type Severity Reaction Status Date / Time No Known Allergies Allergy Verified 09/18/24 13:31 Surgical History History of coronary artery stent placement History of cardiac catheterization Hx of colonoscopy History of vascular access device Hx of total mastectomy of right breast Social History Smoking Status: Current every day smoker tobacco type: cigarettes alcohol intake: current alcohol intake frequency: holidays/special occasions only Review of Systems (Anesthesia) ROS Narrative System reviewed and no additional complaints, except as documented.
[2024-09-23] MEDS: Acetaminophen 500 MG Tablet 1000 MG PO (09:51)
[2024-09-23] MEDS: Magnesium 2 GM for ERAS IV (09:51)
[2024-09-23] MEDS: 0.9% Normal Saline (1000mL) 1,000 ML 15 ML IV (09:53)
[2024-09-23 10:17] LABS: Bedside Glucose 136 mg/dL (74-106)
[2024-09-23] MEDS: Ipratropium/Albuterol Sulfate 3 ML AMPUL.NEB INHALATION (10:30)
--- NOTE | 2024-09-23 10:51 | PCM.HP.BLA ---
History and Physical Date of Admission: 09/23/24 MR#: [id number] Acct: [id number] Name: DEMETRIA ISRAEL Rep #: [id number] : 1955 Provider: Dr. Sd Nieves MD Age/Sex: 69/F Location: [facility] [place] [facility] [place] Status: Signed Intake Vital Signs 09/10/2513:34 09/18/2512:29 Height 5 ft 5 in 5 ft 5 in Weight: 130 lb 130 lb BMI 21.6 21.6 Intake Visit Reasons: cervical spine Chief Complaint: Cervical spine Pre op Accompanied by: Self Is patient in pain?: Yes Pain scale (1-10): 4 Allergies No Known Allergies Allergy (Verified 09/18/24 13:31) Medications ?Medication ?Instructions ?Recorded ?Confirmed ?Type carvedilol 25 mg tablet 25 mg PO BID 07/03/13 09/18/24 History hydrochlorothiazide 25 mg tablet 25 mg PO DAILY 07/03/13 09/18/24 History lisinopril 40 mg tablet 40 mg PO DAILY 07/03/13 09/18/24 History amlodipine 10 mg tablet 10 mg PO DAILY 07/24/24 09/18/24 History metformin 500 mg tablet 500 mg PO BID 07/24/24 09/18/24 History aripiprazole 5 mg tablet 5 mg PO QHS 09/10/24 09/18/24 History aspirin 325 mg tablet 325 mg PO QDAY 09/10/24 09/18/24 History escitalopram oxalate 10 mg tablet 10 mg PO QHS 09/10/24 09/18/24 History hydroxyzine HCl 50 mg tablet 50 mg PO 4X/DAY PRN anxiety 09/10/24 09/18/24 History rosuvastatin 10 mg tablet 10 mg PO QHS 09/10/24 09/18/24 History Have you fallen in the past year?: Yes [facility] Medical History Wears glasses Wears dentures Post-menopausal Cancer Marijuana use Alcohol use History of steroid therapy Diabetes High cholesterol DDD (degenerative disc disease), cervical Smoker Leg cramps History of echocardiogram History of stress test Depression Anxiety History of breast cancer Hypertension Surgical History History of coronary artery stent placement History of cardiac catheterization Hx of colonoscopy History of vascular access device Hx of total mastectomy of right breast Social History Smoking Status: Current every day smoker tobacco type: cigarettes alcohol intake: current alcohol intake frequency: holidays/special occasions only HPI cervical spine Details: This documentation accurately reflects the service provided and the decisions made by me, Dr. Sd Nieves MD 09/18/24 0589. Part of today?s visit was documented by Gary Montanez MA, acting as scribe. DEMETRIA ISRAEL is a 69 year old F here today for cervical spine pre op. Patient would like to discuss more about the surgery. Patient is getting her surgery at the [facility], she will be staying over there for a night. Patient is going to be staying at her son's place after the surgery. 09/10/24: DEMETRIA ISRAEL is a 69 year old F NEW patient here today for spinal stenosis of her cervical spine. She states that she does have pain in her neck but it isn't as bad as it used to be. When she has pain it is at the base of her neck. She denies radiating pain into the arm. She does have numbness in her arms bilaterally. She does have some dexterity issues, she constantly drops things and has a weak outside industrial sales representative. She feels that the issues with her hands worsen everyday. She can no longer write. Says that every week it feels like her function is worsening. Her kids have been helping her complete the tasks that she needs to do. She denies physical therapy and injections. She does have some balance issues that she has had for 2 months. She did have an MRI of her [facility]. She does have a hx of breast cancer but has been in remission for 6 years. She was treated by having a mastectomy and chemo therapy. Patient does present in a wheelchair as she does not do a lot of walking due to her issues with her neck. She says that she has had worsening walking since last summer and uses a wheelchair more and more frequently due to worsening balance. Hx of diabetes, A1c from November 2023 was 5.8, no heart or lung issues, takes aspirin 325mg due to high blood pressure. Ortho Exam General General: Yes no acute distress Neurologic: Yes alert and Yes oriented x3 Spine SPINE TESTING CERVICAL THORACIC LUMBAR Musculoskeletal Strength 0=absent - 5=normal Details: Neurological exam of the upper extremities shows grade 3 strength bilateral bicep and tricep, 4- left wrist extension, bilateral outside industrial sales representative strength, and wrist extension. Normal sensation across all dermatomes. There is midline tenderness, no paraspinal tenderness. Right brisk knee reflex. Ramos's positive on right. Coding Level of Care Code Off vis,est,level 4 Diagnoses Cervical myelopathy G95.9 Spondylolisthesis, cervical region M43.12 Time Spent (min) 35 Assessment and Plan Assessment and Plan (1) Cervical myelopathy: Status: Acute (2) Spondylolisthesis, cervical region: Status: Acute Plan Reviewed MRI from September 01, 2024 which showed a C3-4 severe canal stenosis with anterolisthesis with associated cord deformity and minimal cord signal normality suspicious for myelopathic edema. There is moderate to severe right and severe left neuroforaminal stenosis. C4-5 moderate canal stenosis with at least moderate bilateral neuroforaminal stenosis. C5-6 moderate canal stenosis with moderate right and severe left neuroforaminal stenosis. reviewed x-rays today in the clinic with the patient. X-rays showed Grade 2 anterolisthesis of a proximally 9 mm at C3-C4 with neutral positioning, increasing slightly to 10 mm with flexion. This reduces to grade 1 anterolisthesis of approximately 4 mm with extension. Additional trace grade 1 anterolisthesis at C2-C3 with flexion as well as C4-C5. Explained imaging findings in detail. The patient has been rapidly losing function over the last 6 months and the patient reports that it feels like each week her function furthers to decline. The patient is not able to stand on her own for any extended amount of time due to balance issues and is not able to hold anything in her hands or right with a pencil due to worsening dexterity issues. The patient presented today in a wheelchair. She says prior to this back in summer 2023 she was not having any of these issues and was able to walk without support and denied any dexterity issues at that time. I recommend C3-5 ACDF to decompress the spinal cord in order to halt the progression of myelopathy. All risk benefits and alternatives were discussed. Risks include infection, bleeding, hematoma, dysphagia, hoarseness, subsidence, hardware failure, pseudoarthrosis, need for posterior fusion, DVT, pulm embolism, pneumonia, atelectasis, persistent weakness, persistent balance issues, persistent pain and numbness, risk for future surgeries, adjacent segment disease. Patient understands and agrees to proceed. Consent was signed. All questions were answered.
--- NOTE | 2024-09-23 11:30 | RAD_ITS ---
PROCEDURE: Intraoperative fluoroscopic imaging. 09/23/2024 REASON FOR EXAM: ANTERIOR FUSION C3-4 AND C4-5 TECHNIQUE: 4 intraoperative fluoroscopic images were submitted. Fluoroscopic time: 14.3 seconds. 1.03 mGy. COMPARISON: Comparison is made with prior examination dated September 10, 2024. FINDINGS: Intraoperative fluoroscopic services provided for anterior fusion at the C3-C4 and C4-C5 levels. RAD/Cerv Spine 2 or 3 Views IMPRESSION: Anterior fusion at the C3-C4 and C4-C5 levels utilizing screw and plate fixatio n device. Disclaimer: Reading Location: [facility]
[2024-09-23] MEDS: Cefazolin 2 GM in Syringe 10 ML IV ×2 (11:35→19:56)
[2024-09-23] MEDS: TRANEXAMIC ACID 1,000 MG in 0.9% Normal Saline (100mL Bag) 100 ML 440 MG IV ×2 (11:40→13:17)
[2024-09-23] MEDS: dexAMETHasone 10 MG/ML Vial 8 MG IV (11:41)
--- NOTE | 2024-09-23 13:55 | PCM.POST.ANE ---
Anesthesia: Postop Eval I Current Vital Signs Temperature: 96.9 F Pulse Rate: 79 Blood Pressure: 157/77 Respiratory Rate: 16 Pulse Ox: 96 Oxygen Delivery Method: Room Air Assessment Airway patent: Yes Spontaneous unlabored respirations: Yes Mental status: Awake and Calm nausea: No Vomiting: No Anesthesia Complication: No Fluid Hydration Crystalloid volume administer (ml): 2,200 Total IV fluid infused: 2,200 Progress Note Anesthesia document: Postop Eval 1 completed: Yes
--- NOTE | 2024-09-23 14:00 | PCM.PROGNOTE ---
Subjective Subjective Patient is a 69-year-old female with past medical history as outlined was admitted to the service of spine surgery for cervical disc fusion on account of cervical spinal stenosis and spondylolisthesis with cervical myelopathy. Hospitalist service was consulted for medical management. Patient was seen after the surgery. Pain was well controlled. She denied any fever, chills, cough, chest pain, palpitations, dizziness, nausea, vomiting or any other systems. Review of systems is otherwise negative. Objective Data Objective Data Vital Signs: Vital Signs Temp Pulse Resp BP Pulse Ox O2 Del Method 96.9 F L 79 16 157/77 H 96 Room Air 09/23/24 13:56 09/23/24 13:56 09/23/24 13:56 09/23/24 13:56 09/23/24 13:56 09/23/24 13:56 Oxygen Delivery Method Room Air Weight: 134 lb 7.712 oz Body Mass Index (BMI) 22.4 Intake & Output: Intake and Output for Last 24 Hours 09/21/24 09/22/24 09/23/24 23:59 23:59 23:59 Intake Total 240 / 240 Balance 240 / 240 Lab / Micro Data 09/21/24 08:50 09/21/24 08:50 Labs: Laboratory Results - last 24 hr 09/23/24 09:41: POC Glucose 136 H Micro: Microbiology 09/21/24 08:50 Swab (Method) Nasal Screen MRSA/MSSA - Final Radiography Diagnostic Testing: Radiology Impression Cervical Spine X-Ray 09/23/24 11:30 IMPRESSION: Anterior fusion at the C3-C4 and C4-C5 levels utilizing screw and plate fixation device. Disclaimer: Reading Location: [facility] Physical Exam Const alert, oriented x3 and no apparent distress Constitutional Narrative: frail General Appearance: cooperative HEENT normocephalic, head/scalp atraumatic, moist oral mucous membranes and oropharynx normal Eyes PERRL and EOMs intact bilaterally Neck no lymphadenopathy and supple Neck Narrative: intact neck collar, with intact dressing over anterior neck Lymph Lymphatic: no lymphadenopathy noted Resp Resp Narrative: mildly diminished breath sounds bibasally, no wheezes or crackles. On 2L of oxygen by nasal canula Cardio regular rate, regular rhythm, S1 normal heart sound, S2 normal heart sound and no murmurs Peripheral Pulses: pulses 2+ throughout GI normal to inspection, nondistended, normoactive bowel sounds, soft to palpation, non-tender and non-distended Extremity normal capillary refill, no clubbing, cyanosis or edema and no calf tenderness General Extremity: no tenderness to palpation of joints or extremities Skin General Skin Exam: no breakdown Neuro CN's II-XII intact bilaterally Motor Exam: strength 5/5 throughout and general weakness Psych thought process normal, cooperative and affect normal Appearance: appropriate Assessment & Plan Assessment/Plan (1) Spondylolisthesis, cervical region: (2) Cervical myelopathy: PLAN: Plan #Cervical stenosis with spondylolisthesis and myelopathy s/p cervical disc fusion by spine surgery pain is well controlled PT/OT on conslt fall precautions management as per [facility] service. incentive spirometry use. #Hypertension BP elevated in the 170s systolic. She does have known high blood pressure. She is on carvedilol and hydrochlorothiazide as well as amlodipine and lisinopril. Resume these when okay with primary service. IV hydralazine prn #Hyperlipdemia: on statin #Type 2 diabetes mellitus: On metformin. Insulin sliding scale. Accu-Cheks ACHS. DVT prophylaxis: as per primary service. SCDs Thank you for the courtesy of the consult. The hospitalist service will continue to follow with you. Charges/Coding Visit Charges Inpatient E&M: 34057 Subs Hosp L2
--- NOTE | 2024-09-23 14:08 | OP.PCM_ITS ---
Procedures Musculoskeletal 20xxx-29xxx: Other Procedure See Report Operative Report (Standard) Operative Information Date of Procedure: 09/23/24 Pre-Operative Diagnosis: C3-4, C4-5 spondylolisthesis with severe stenosis, cord compression, cord signal changes, myelopathy Post-Operative Diagnosis: Same Surgery/Procedure Performed: C3-5 ACDF esthetician facialist: Yes Operating Table Assembler: Angie Joy Tasks completed by press assistant and feeder: Closing, Removing tissue, Implanting device, Hemostasis: Electrocautery and Retracting Type of Anesthesia: General RN Documented Start/Stop Times: Operation Date: 09/23/24 11:00 Case Time Into Pre-Op 09/23/24 09:38 Out of Pre-Op 09/23/24 11:14 Anesthesia Start 09/23/24 11:16 Into Room 09/23/24 11:16 Procedure Start 09/23/24 11:48 Procedure End 09/23/24 13:41 Anesthesia End 09/23/24 13:49 Out of Room 09/23/24 13:49 Into Recovery 09/23/24 13:52 Procedure Start Time: 11:48 Procedure Stop Time: 13:41 Select all DRAINS/GRAFTS/IMPLANTS that apply: Drains Drain details: [place] , Graft Graft details: Structural allograft cortical cancellous strut, DBX and Implanted device Implanted device details: Medtronic Fielding Elite plate in strumentation Estimated Blood Loss: 20 cc Specimen collected: No Description of surgery: Preoperative diagnosis: C3-4, C4-5 spondylolisthesis with severe stenosis, cord compression, cord signal changes, myelopathy Postoperative diagnosis: same Name of procedure: C3-5 anterior cervical discectomy and fusion with plate instrumentation - Anterior cervical fusion C3-4, CPT code 23212 - Anterior plate instrumentation C3-5, CPT code 00752/59 - Anterior cervical fusion C4-5, CPT code 03584/51 -C3-4 structural allograft bone with DBX, CPT code 67593 -C4-5 structural allograft bone with DBX, CPT code 37421 Attending surgeon: Sd Nieves M.D. Anesthesia: Gen. endotracheal Estimated blood loss: 20 mL Complications: None Instrumentation used: Medtronic Fielding Elite plate, LASR corticocancellous block Indications: The patient is a pleasant 69-year-old lady who presented with neck pain, upper and lower extremity weakness, progressive difficulty with dexterity and balance and losing the ability to walk and use her hands. MRI showed C3-4 and C4-5 spondylolisthesis with severe stenosis, cord compression, cord signal changes. In order to halt the progression of myelopathy, the patient requested surgical treatment. All risks and benefits of the procedure were explained to the patient. The risks include but are not limited to infection, bleeding, injury to nerves and vessels, vertebral artery injury, spinal cord injury, paralysis, vocal cord paralysis, injury to esophagus, pseudoarthrosis, need for further procedures, adjacent segment degeneration. Procedure: The patient was identified in the preoperative suite using unique patient identifiers. Skin was marked consent was taken and all questions were answered. The patient was then brought back to the operative room and a timeout was performed. General endotracheal anesthesia was given. Intraoperative neuro monitoring leads were applied. The patient was carefully positioned supine on a regular OR table. A lateral view with a C-arm was done to identify the level and to define the incision. The anterior neck was then prepped and draped in the usual fashion. A final timeout was then performed. A transverse skin incision was taken to the left of midline. Subcutaneous tissue was then divided with Bovie. Platysma was identified and cut along the incision with scissors. The fascial interval between the sternocleidomastoid and the larynx was developed. Omohyoid was identified and retracted. The esophagus with the larynx was retr acted medially to reach the prevertebral fascia. Marker x-ray was performed with bent spinal needle and disc space and levels were confirmed. Longus coli muscle was elevated on both sides at and above and below C3-5 discs. Self-retaining retractors were then placed. A long handle knife was then used to perform annulotomy at C3-4. Disc fragments were removed with the pituitary. Breckenridge pins were placed in C3 and C4 for disc distraction. Curettes and bur was utilized to remove cartilage from the endplates. Discectomy was performed laterally up to the uncovertebral joints. Posterior osteophytes were thinned down with the bur and adequate decompression in the central and foraminal areas were performed and PLL was thinned out. Once the disc space was prepared, trials of various sizes were utilized. Thorough irrigation was given. 7 mm LASR cortical cancellous allograft bone large footprint was then fashioned in such a way that concavities were burred out inferiorly and superiorly and half cc of DBX (demineralized bone matrix) was squeezed into the cancellous portion. The graft was then inserted into the C3-4 disc space. The retractors were then repositioned and the procedure was repeated for C4-5 discs with complete discectomy. Graft size was 6 mm at with large footprint at C4-5. The grafts were found to be in good apposition with good pullout strength. A 40 mm Medtronic Fielding Elite plate was then fixed to C3-5 with 16 mm screws. A lateral x-ray was then taken to check the length of the screws. Both AP and lateral x-rays showed good positioning of plate and screws. The locking mechanism over the screw heads was then turned. Thorough irrigation was again given. Hemostasis was achieved. A Ellen drain was then inserted. Closure was done with 3-0 Vicryl for the platysma and subcutaneous tissue layers and 4-0 Monocryl for the skin. Closure was done around the drain. Steri-Strips were applied and dressing was done with 4 x 4 gauze and Tegaderm. A cervical collar was then applied. The patient was then woken up from anesthesia extubated and taken to PACU in stable condition. From here, the patient will be transitioned to the floor. Intraoperative neuro monitoring was performed throughout this procedure. Motor evoked potentials were run periodically. All potentials remained at baseline throughout the procedure. I was present for the entire surgery and performed the surgery myself. Social Media Marketing Manager Angie Joy PA-C. My physician respiratory therapist assistant was a vital part of this case. They were important in appropriate retraction during the case, and protection of soft tissues during the procedure. Their intimate knowledge of the case and my steps aided in safe and expedient completion of the procedure as well as appropriate position of the patient during the surgery. They were also vital in assisting with closure under my direct supervision. Surgical Findings: See operative note Complications Complications: No
--- NOTE | 2024-09-23 15:02 | POSTOPAN2_ITS ---
Anesthesia Postop Eval I Sum Postop Eval Completion status Anesthesia document: Postop Eval 1 completed: Yes Anesthesia Postop Eval I Summary Anesthesia Postop Eval I Summary: Anesthesia Postop Eval I: Assessment Summary Airway patent Yes 09/23/24 13:56 EQUIPMENT SERVICE [email or web address] Spontaneous unlabored Yes 09/23/24 13:56 EQUIPMENT SERVICE [email or web address] respirations Mental status Awake,Calm 09/23/24 13:56 EQUIPMENT SERVICE [email or web address] nausea No 09/23/24 13:56 EQUIPMENT SERVICE [email or web address] Vomiting No 09/23/24 13:56 EQUIPMENT [email or web address] Anesthesia Postop Eval I: Fluid Summary Crystalloid volume administer 2,200 09/23/24 13:56 EQUIPMENT SERVICE [email or web address] (ml) Colloids volume administered ( ml) Blood Product volume administered (ml) Total IV fluid infused 2,200 09/23/24 13:56 EQUIPMENT SERVICE [email or web address] Anesthesia Postop Eval I: Summary Notes Anesthesia Complication No 09/23/24 13:56 EQUIPMENT [email or web address] Anesthesia Complication Comment: Post-operative progress note Anesthesia: Postop Eval II Evaluation Mental status: Awake Pain Level: 0 nausea: No Vomiting: No
--- NOTE | 2024-09-23 15:02 | PCM.POSTANE2 ---
Anesthesia Postop Eval I Sum Postop Eval Completion status Anesthesia document: Postop Eval 1 completed: Yes Anesthesia Postop Eval I Summary Anesthesia Postop Eval I Summary: Anesthesia Postop Eval I: Assessment Summary Airway patent Yes 09/23/24 13:56 [email or web address] Spontaneous unlabored Yes 09/23/24 13:56 TURNER [email or web address] respirations Mental status Awake,Calm 09/23/24 13:56 [email or web address] [email or web address] nausea No 09/23/24 13:56 TURNER [email or web address] Vomiting No 09/23/24 13:56 [email or web address] [email or web address] Anesthesia Postop Eval I: Fluid Summary Crystalloid volume administer 2,200 09/23/24 13:56 [email or web address] (ml) Colloids volume administered ( ml) Blood Product volume administered (ml) Total IV fluid infused 2,200 09/23/24 13:56 [email or web address] [email or web address] Anesthesia Postop Eval I: Summary Notes Anesthesia Complication No 09/23/24 13:56 [email or web address] [email or web address] Anesthesia Complication Comment: Post-operative progress note Anesthesia: Postop Eval II Evaluation Mental status: Awake Pain Level: 0 nausea: No Vomiting: No
[2024-09-23] MEDS: Ketorolac 15 MG/ML Vial IV (16:55)
[2024-09-23] MEDS: Carvedilol 25 MG Tablet PO (16:55)
[2024-09-23] MEDS: metFORMIN HCl 500 MG Tablet PO (16:55)
[2024-09-23] MEDS: Methocarbamol 500 MG Tablet 1000 MG PO ×2 (18:29→23:53)
[2024-09-23] MEDS: 0.9% Saline Lock 10 ML Syringe IV (19:56)
[2024-09-23] MEDS: dexAMETHasone 4 MG/ML Vial IV (19:58)
[2024-09-23] MEDS: HYDROcodone Bitartrate/Apap 5/325 Tablet PO (20:08)
[2024-09-23] MEDS: Atorvastatin Calcium 20 MG Tablet PO (23:53)
[2024-09-23] MEDS: Senna/Docusate Sodium 1 Tablet 2 TABLET PO (23:53)
[2024-09-23] MEDS: ARIPiprazole 5 MG Tablet PO (23:54)
[2024-09-23] MEDS: Escitalopram Oxalate 10 MG Tablet PO (23:54)
[2024-09-24] MEDS: Ketorolac 15 MG/ML Vial IV
[2024-09-24 01:00] VITALS: RESP 15
[2024-09-24] MEDS: HYDROcodone Bitartrate/Apap 5/325 Tablet PO ×3 (02:03→10:11)
[2024-09-24 04:22] VITALS: BP 121/64; PULSE 79; RESP 15; TEMP 36.3; O2SAT 95
[2024-09-24] MEDS: Cefazolin 2 GM in Syringe 10 ML IV (04:25)
[2024-09-24] MEDS: dexAMETHasone 4 MG/ML Vial IV ×2 (04:26→11:49)
--- NOTE | 2024-09-24 05:15 | RAD_ITS ---
PROCEDURE: CERV SPINE 2 OR 3 VIEWS 09/24/2024 REASON FOR EXAM: S/P CERVICAL FUSION TECHNIQUE: 2 views of the cervical spine. COMPARISON: Intraoperative fluoroscopic views 09/23/2024 and 09/10/2024 FINDINGS: Cervical spine is visualized on the lateral view from the skull base to the top of T1. Status post anterior cervical disc fusion with intervertebral disc spacers C3 through C5 appears intact with near appearing anatomic alignment. Minimal step like anterior listhesis C3 on 4 and C4 on 5. No fracture. Severe disc space narrowing C5-6 and avscpcch-bc-uplvuy C6-7. No prevertebral soft tissue swelling. Left anterior neck Oxford drain, safety pin and cervical collar noted. Bilateral carotid calcific plaque, left port and atherosclerotic changes of the aortic arch again noted. Visualized apices appear clear. Edentulous. RAD/Cerv Spine 2 or 3 Views IMPRESSION: Status post anterior cervical disc fusion with intervertebral disc spacers C3 t hrough C5 appears intact with near appearing anatomic alignment. Minimal step like anterior listhesis C3 on 4 and C4 on 5. No fracture. Severe disc space narrowing C5-6 and mvfwpnyv-ep-eikwns C6-7. Reading Location: [id number]
[2024-09-24 08:41] LABS: Hematocrit 33.8 % (37-47); Hemoglobin 11.6 g/dL (12.0-15.0); Mean Corp Hgb Conc 34.3 g/dL (32-36); Mean Corpuscular Hgb 29.1 pg (27.0-32.0); Mean Corpuscular Volume 84.7 fL (81-99); Mean Platelet Vol. 9.4 fl (6.2-12.0); Platelet Count 329 K/mm3 (150-450); RBC Distribution Width CV 12.8 % (11.6-14.6); RBC Distribution Width SD 39.5 fl (35.1-43.9); Red Blood Count 3.99 M/mm3 (4.2-5.4); White Blood Count 13.1 K/mm3 (4.4-11.0)
[2024-09-24 08:52] VITALS: BP 120/56; PULSE 91; RESP 18; TEMP 36.6; O2SAT 92
[2024-09-24] MEDS: Methocarbamol 500 MG Tablet 1000 MG PO (09:00)
[2024-09-24] MEDS: hydroCHLOROthiazide 25 MG Tablet PO (09:00)
[2024-09-24] MEDS: amLODIPine 10 MG Tablet PO (09:00)
[2024-09-24] MEDS: Meloxicam 15 MG Tablet PO (09:00)
[2024-09-24] MEDS: Senna/Docusate Sodium 1 Tablet 2 TABLET PO (09:00)
[2024-09-24] MEDS: Lisinopril 40 MG Tablet PO (09:00)
[2024-09-24] MEDS: Carvedilol 25 MG Tablet PO (09:00)
[2024-09-24] MEDS: metFORMIN HCl 500 MG Tablet PO (09:00)
[2024-09-24 09:02] LABS: Anion Gap 13 (5-15); BUN 13 mg/dL (4-19); BUN/Creat Ratio 12.5 RATIO (10-20); Calcium,Total 8.4 mg/dL (7.6-11.0); Carbon Dioxide 21.8 mmol/L (21.0-32.0); Chloride 100 mmol/L (98-108); EST Glomerular Filtration Rate 62 (>60); Estimated Creatinine Clearance 49.12 ml/min (50-250); Glucose 174 mg/dL (70-99); Potassium 3.3 mmol/L (3.3-5.1); Sodium Level 135 mmol/L (133-145)
--- NOTE | 2024-09-24 09:13 | PN.HOSP_ITS ---
Reason for Visit Reason for Visit: Diagnoses Disease of spinal cord, unspecified (09/23/24) Spondylolisthesis, cervical region (09/23/24) Encounter for other preprocedural examination (09/23/24) Subjective Subjective Patient is a 69-year-old lady who underwent C3-5 ACDF on account of C3-4, C4-5 spondylolisthesis with severe stenosis, cord compression, cord signal changes, myelopathy. Hospitalist service was consulted to assist with management of patient medical comorbidities Objective Data Objective Data Vital Signs: Vital Signs Temp Pulse Resp BP Pulse Ox O2 Del Method O2 Flow Rate 97.9 F 91 18 120/56 L 92 Room Air 2 09/24/24 08:52 09/24/24 08:52 09/24/24 08:52 09/24/24 08:52 09/24/24 08:52 09/24/24 08:56 09/24/24 06:49 Oxygen Flow Rate (L/min) 2 Oxygen Delivery Method Room Air Weight: 61 kg Body Mass Index (BMI) 22.4 Intake & Output: Intake and Output for Last 24 Hours 09/22/24 09/23/24 09/24/24 23:59 23:59 23:59 Intake Total 2564 / 3064 720 / 720 Balance 2564 / 3064 720 / 720 Lab / Micro Data 09/24/24 06:34 09/24/24 06:34 Labs: Laboratory Results - last 24 hr 09/23/24 09:41: POC Glucose 136 H 09/24/24 06:34: WBC 13.1 H, RBC 3.99 L, Hgb 11.6 L, Hct 33.8 L, MCV 84.7, MCH 29.1, MCHC 34.3, RDW Std Deviation 39.5, RDW Coeff of David 12.8, Plt Count 329, MPV 9.4, Sodium 135, Potassium 3.3, Chloride 100, Carbon Dioxide 21.8, Anion Gap 13, BUN 13, Creatinine 1.00, Estim Creat Clear Calc 49.12 L, Est GFR (MDRD) Non- Af 62, BUN/Creatinine Ratio 12.5, Glucose 174 H, Calcium 8.4 Micro: Microbiology 09/21/24 08:50 Swab (Method) Nasal Screen MRSA/MSSA - Final Radiography Diagnostic Testing: Radiology Impression Cervical Spine X-Ray 09/23/24 11:30 IMPRESSION: Anterior fusion at the C3-C4 and C4-C5 levels utilizing screw and plate fixation device. Disclaimer: Reading Location: [facility] Cervical Spine X-Ray 09/24/24 05:15 IMPRESSION: Status post anterior cervical disc fusion with intervertebral disc spacers C3 through C5 appears intact with near appearing anatomic alignment. Minimal step like anterior listhesis C3 on 4 and C4 on 5. No fracture. Severe disc space narrowing C5-6 and fchvoryi-aq-mlecpj C6-7. Reading Location: [facility] Physical Exam Narrative GENERAL: cooperative HEENT: Atraumatic; cervical collar present EYES; Anicteric, Normal Conjunctiva NECK; supple, normal thyroid, RESPIRATORY: Diminished to auscultation CARDIOVASCULAR: Regular S1 S2, GI: soft, normoactive bowel sounds, : No Renal angle tenderness; EXTREMITIES: No edema, no clubbing, MUSCULOSKELETAL: no muscle wasting NEURO: Awake; no lateralizing signs. SKIN: No Rash PSYCH; Flat affect Assessment & Plan Assessment/Plan (1) Spondylolisthesis, cervical region: (2) Cervical myelopathy: PLAN: Plan Patient is a 69-year-old lady who underwent C3-5 ACDF on account of C3-4, C4-5 spondylolisthesis with severe stenosis, cord compression, cord signal changes, myelopathy. Hospitalist service was consulted to assist with management of patient medical comorbidities 1. Cervical stenosis with spondylolisthesis and myelopathy ? Patient underwent underwent C3-[address] Sd Nieves on 09/23/2024. Postoperative management regarding pain management, PT OT DVT prophylaxis deferred to primary service 2. Essential potential ? Patient blood pressure was found to be elevated following surgery. Home medications resumed patient blood pressure has since stabilized 3. Dyslipidemia ?Patient is on statin therapy, continued at home dose 4. Diabetes mellitus type 2 ? Patient was on metformin did contain 5. Anemia ? Secondary to chronic disorder monitoring H&H and transfuse if patient becomes symptomatic or hemoglobin falls below 7 6. Depression with anxiety did continue with home meds 7. DVT prophylaxis ? Defer to primary service Time spent in the patient's overall evaluation,decision-making process, review of diagnostic data, adjustment of management, discussion with other providers, nursing nursing and ancillary staff involved in patient's care documentation, 38 Minutes Charges/Coding Visit Charges Inpatient E&M: 51732 Subs Hosp L2
[2024-09-24 09:31] VITALS: O2SAT 90
--- NOTE | 2024-09-24 09:40 | CASEMGMT ---
RN CM Face to Face with patient for initial transition planning/care coordination assessment. RN CM introduced self and role at [facility]. Patient lying in bed, alert and oriented. Patient willing to participate in assessment and is able to answer all questions appropriately. Care providers, pharmacy, and demographics verified. Strata: 1 PCP: Nawaf Specialists: ean Nieves Pharmacy: [facility] Insurance: [facility] Prescription Benefit: none Living Will/HPOA: none LNOK: , sons Living Arrangements: Patient lives alone in a mobile home with no steps to enter. Patient is independent at home. Transportation: sons, DME/HHC: Patient has walker and shower chair at home. No previous HHC or SNF. Patient wishes to discharge home, denies need for home health at this time. Patient states she has no further needs or concerns at this time. CM to follow for discharge planning needs that may arise. Disposition Plan: Patient to discharge home with family support and follow-up plans in place. Onelia DONNELLY, RN, CM
[2024-09-24] MEDS: 0.9% Saline Lock 10 ML Syringe IV ×2 (11:49)
[2024-09-24 13:10] VITALS: BP 100/52; PULSE 83; RESP 18; TEMP 36.6; O2SAT 91
--- NOTE | 2024-09-24 13:36 | CASEMGMT ---
Addendum entered by Madina Adamson 09/24/24 13:50: Rx for OP PT & OT signed by the PA. Unable to make copy of the Rx as the printer is currently down. KORINA LAMAS to pt room @ this time. Physical Rx handed to the pt at this time. Pt denies transportation issues and thanks this KORINA LAMAS. Pt denies any further DC needs. Pt RN aware. Original Note: Angie Joy (Ortho PA) requests OP PT to be set up for the pt. KORINA LAMAS to pt room at this time. Pt states that she is agreeable and plans to attend either or [facility]. Pt states that she prefers to schedule her own appt. Rx faxed to the PA @ [phone] for signing. CM to follow.
--- NOTE | 2024-09-24 17:01 | PCM.PN.ORT ---
Subjective Subjective Patient is postop day 1 C3-5 ACDF. Patient is doing well postoperatively with her pain well-managed. Patient has walked with therapy and is cleared for home discharge from their end, they do recommend additional therapy. Denies any dysphagia. The patient was wearing oxygen related to some mildly low saturation. Dressings were changed 1 time over the night. Seen with Dr. Nieves. Objective Data Objective Data Vital Signs: Vital Signs Temp Pulse Resp BP Pulse Ox O2 Del Method O2 Flow Rate 97.9 F 83 18 100/52 L 91 Room Air 2 09/24/24 13:10 09/24/24 13:10 09/24/24 13:10 09/24/24 13:10 09/24/24 13:10 09/24/24 13:10 09/24/24 06:49 Oxygen Flow Rate (L/min) 2 Oxygen Delivery Method Room Air Weight: 134 lb 7.712 oz Body Mass Index (BMI) 22.4 Intake & Output: Intake and Output for Last 24 Hours 09/22/24 09/23/24 09/24/24 23:59 23:59 23:59 Intake Total 2564 / 3064 1083 / 1083 Balance 2564 / 3064 1083 / 1083 Lab / Micro Data 09/24/24 06:34 09/24/24 06:34 Labs: Laboratory Results - last 24 hr 09/24/24 06:34: WBC 13.1 H, RBC 3.99 L, Hgb 11.6 L, Hct 33.8 L, MCV 84.7, MCH 29.1, MCHC 34.3, RDW Std Deviation 39.5, RDW Coeff of David 12.8, Plt Count 329, MPV 9.4, Sodium 135, Potassium 3.3, Chloride 100, Carbon Dioxide 21.8, Anion Gap 13, BUN 13, Creatinine 1.00, Estim Creat Clear Calc 49.12 L, Est GFR (MDRD) Non-Af 62, BUN/Creatinine Ratio 12.5, Glucose 174 H, Calcium 8.4 Micro: Microbiology 09/21/24 08:50 Swab (Method) Nasal Screen MRSA/MSSA - Final Radiography Diagnostic Testing: Radiology Impression Cervical Spine X-Ray 09/24/24 05:15 IMPRESSION: Status post anterior cervical disc fusion with intervertebral disc spacers C3 through C5 appears intact with near appearing anatomic alignment. Minimal step like anterior listhesis C3 on 4 and C4 on 5. No fracture. Severe disc space narrowing C5-6 and gtlpowvl-pm-pjirqe C6-7. Reading Location: [id number] Physical Exam Narrative Dressing and gauze with mild saturation was removed. Drain removed. Incision was then covered with new Tegaderm and gauze. Collar was reapplied and height was adjusted to fit the patient more snugly. Neurological examination of the upper extremities showed grade 3 strength bilateral bicep and tricep, 4- left wrist extension, bilateral custody assistant strength, and wrist extension. This is similar to baseline. Normal sensation across all dermatomes. Const alert, oriented x3 and no apparent distress Assessment & Plan Assessment/Plan (1) Status post cervical spinal fusion: PLAN: Plan Postop day 1 C3-5 ACDF. Obtained and reviewed x-rays today which show hardware and bone graft in good position. Patient is ready for home discharge from therapy however recommended outpatient physical therapy. Order for outpatient physical therapy was signed. Home-going meds include hydrocodone?acetaminophen, methocarbamol, senna. Meloxicam was not given due to the patient taking a full aspirin. Reviewed restrictions of no bending, lifting, twisting. Patient will wear the collar full-time until her follow-up. Encourage and educated the patient on the use of the incentive spirometer. She will follow-up in 2 weeks in the clinic. Patient is in agreement.
== END 2024-09-24 13:54 | disposition home or self-care (01) ==
LOC: SDC 16:01 → MS3 16:01
PROVIDERS: Anesthesiology; Student in an Organized Health Care Education/Training Program; Admitting Provider Orthopaedic Surgery Orthopaedic Surgery of the Spine; PCP Internal Medicine; Referring Provider Orthopaedic Surgery Orthopaedic Surgery of the Spine; Visit Provider Orthopaedic Surgery Orthopaedic Surgery of the Spine
PROC: (CPT 22551; principal; 2024-09-23 10:30)
DX: M43.12 Spondylolisthesis, cervical region (principal); G95.9 Disease of spinal cord, unspecified; E11.9 Type 2 diabetes mellitus without complications; M48.02 Spinal stenosis, cervical region; R09.02 Hypoxemia; Z98.1 Arthrodesis status; Z79.84 Long term (current) use of oral hypoglycemic drugs; I10 Essential (primary) hypertension; E78.5 Hyperlipidemia, unspecified; D64.9 Anemia, unspecified; F41.8 Other specified anxiety disorders; Z85.3 Personal history of malignant neoplasm of breast; Z95.5 Presence of coronary angioplasty implant and graft; F17.210 Nicotine dependence, cigarettes, uncomplicated
CPT/HCPCS: 22551; 22845; 22552; 20931; 00600; 36415; 72040; 76000; 80048; 82962; 83036; 83735; 85025; 85027; 86703; 86706; 86708; 86803; 86850; 86900; 86901; 87077; 87081; 93005; 94640; 94668; 96361; 96365; 96366; 96375; 96376; 97162; 97166; 99221; 99406; A4648; C1713; A4216; G0378; J2405